=== PATIENT | male | born 1940 | race Caucasian/White ===

== ENCOUNTER 2019-09-02 14:45 | Emergency (ER) | payer MEDICARE ==
[~2019-09-02 14:45] MED LIST: EPINEPHrine SYR 0.1MG/ML* SYRINGE ONE
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
[2019-09-02 14:57] VITALS: BP 0/0
== END 2019-09-02 17:10 | disposition expired ==
LOC: ED 14:45
DX: I46.9 Cardiac arrest, cause unspecified (principal)
CPT/HCPCS: 99283; J0171